=== PATIENT | male | born 1990 | race Caucasian/White ===

== ENCOUNTER 2022-11-05 08:39 | Emergency (ER) | payer BC ==
[~2022-11-05] VITALS: Ht 152.4 cm; Wt 72.6 kg
== END 2022-11-05 10:07 | disposition home or self-care (01) ==
LOC: ER 08:39
DX: S61.217A Laceration without foreign body of left little finger without damage to nail, initial encounter (principal); X58.XXXA Exposure to other specified factors, initial encounter; Y93.89 Activity, other specified; Y92.89 Other specified places as the place of occurrence of the external cause; Y99.8 Other external cause status